=== PATIENT | female | born 1995 | race Caucasian/White ===

== ENCOUNTER 2017-07-04 13:43 | Emergency (ER) | payer OTHER ==
[2017-07-04 14:25] VITALS: BP 108/58; PULSE 92; RESP 18; TEMP 99; O2SAT 100
--- NOTE | 2017-07-04 16:29 | ED PDOC ---
HPI: Back Time Seen by Provider: 07/04/17 14:58 Chief Complaint (Nursing): Back Pain Chief Complaint (Provider): Back pain History Per: Patient History/Exam Limitations: no limitations Onset/Duration Of Symptoms: Days (x1 week) Current Symptoms Are (Timing): Still Present Quality Of Discomfort: "Pain" Associated Symptoms: None Exacerbating Factor(s): Movement Additional Complaint(s): Javier Coppola is a 22 year old female, with no significant past medical history , who presents to the emergency department complaining of lower back pain onset for x1 week. Patient reports she fell x2 months ago, and states the pain is worst with movement. She had pain initially but went away. Patient has been taking over the counter medication but with no improvement. She denies any paresthesias, weakness, fever, acute bowel or bladder dysfunction. No further medical complaints. PMD: None provided. Past Medical History Reviewed: Historical Data, Nursing Documentation, Vital Signs Vital Signs: Last Vital Signs Temp 99 F 07/04/17 14:21 Pulse 92 H 07/04/17 14:21 Resp 18 07/04/17 14:21 BP 108/58 L 07/04/17 14:21 Pulse Ox 100 07/04/17 14:21 - Medical History PMH: No Chronic Diseases - Surgical History Surgical History: Appendectomy - Family History Family History: States: Unknown Family Hx - Social History Current smoker - smoking cessation education provided: No Alcohol: None Drugs: Denies - Immunization History Hx Tetanus Toxoid Vaccination: No Hx Influenza Vaccination: No Hx Pneumococcal Vaccination: No - Home Medications Home Medications: Ambulatory Orders Medication Instructions Recorded Cyclobenzaprine [Cyclobenzaprine 10 mg PO TID PRN #15 tab 07/04/17 HCl] Meloxicam [Mobic] 15 mg PO DAILY #20 tab 07/04/17 - Allergies Allergies/Adverse Reactions: Allergies Allergy/AdvReac Type Severity Reaction Status Date / Time No Known Allergies Allergy Verified 07/04/17 14:21 Review of Systems ROS Statement: Except As Marked, All Systems Reviewed And Found Negative Constitutional: Negative for: Fever Gastrointestinal: Negative for: Constipation Genitourinary Female: Negative for: Frequency, Incontinence Musculoskeletal: Positive for: Back Pain (lower) Neurological: Negative for: Weakness, Numbness Physical Exam - Reviewed Nursing Documentation Reviewed: Yes Vital Signs Reviewed: Yes - Physical Exam Comments: GENERAL APPEARANCE: Patient is awake, alert, oriented x 3, in no acute distress. SKIN: Warm, dry; (-) cyanosis. EYES: (-) conjunctival pallor. ENMT: Mucous membranes moist. NECK: (-) tenderness, (-) stiffness, (-) lymphadenopathy. CHEST AND RESPIRATORY: (-) rales, (-) rhonchi, (-) wheezes; breath sounds equal bilaterally. HEART AND CARDIOVASCULAR: (-) irregularity; (-) murmur, (-) gallop. ABDOMEN AND GI: Soft; (-) tenderness; (-) palpable mass. BACK: Diffusely tender paralumbar area, (+) mild spasm, (+) midline tenderness w / direct bony tenderness to L3-L4, (-) deformity. Straight leg raising (-) bilaterally. EXTREMITIES: (-) deformity. Distal pulses good bilaterally. NEURO AND PSYCH: Mental status as above. Intact sensation bilaterally; normal strength in extension of the knees, plantar and dorsiflexion of the toes. DTRs symmetric. - ECG O2 Sat by Pulse Oximetry: 100 (RA) Pulse Ox Interpretation: Normal Medical Decision Making Medical Decision Making: Initial Impression: Back pain Initial plan: --Flexeril 10 mg PO --Toradol 60 mg IM --POC Urine --LS Spine with OBL > 18 yrs old [RAD] --reevaluation Uhcg : (-) XR L spine : IMPRESSION: No acute fractures. Straightening of the normal lumbar lordosis. Mild degenerative spondylosis L4-L5 level. X-ray results discussed with the patient in great detail. Based on history, exam and diagnostic results plan will be for outpatient follow-up. Advised to follow up with primary care physician or the clinic in 1-2 days without fail. Advised to take medication as prescribed. Return to the emergency room at any time for any new or worsening symptoms. Patient states she fully agrees with and understands discharge instructions. States that she agrees with the plan and disposition. Verbalized and repeated discharge instructions and plan. I have given the patient opportunity to ask any additional questions. ~ Scribe Attestation: Documented by Woody Estrada, acting as a scribe for Romina Contreras PA-C. Provider Scribe Attestation: All medical record entries made by the Scribe were at my direction and personally dictated by me. I have reviewed the chart and agree that the record accurately reflects my personal performance of the history, physical exam, medical decision making, and the department course for this patient. I have also personally directed, reviewed, and agree with the discharge instructions and disposition. Disposition - Clinical Impression Clinical Impression: Low back pain - Patient ED Disposition Is Patient to be Admitted: No Counseled Patient/Family Regarding: Studies Performed, Diagnosis, Need For Followup, Rx Given - Disposition Referrals: [facility] [Outside] Disposition: Routine/Home Disposition Time: 17:00 Condition: STABLE Additional Instructions: Thank you for letting us take care of you today. You were treated for low back pain. The emergency medical care you received today was directed at your acute symptoms. If you were prescribed any medication, please fill it and take as directed. It may take several days for your symptoms to resolve. Return to the Emergency Department if your symptoms worsen, do not improve, or if you have any other problems. Please call one of the physicians/clinics you have been referred to that are listed on the Patient Visit Information form that is included in your discharge packet. Bring any paperwork you were given at discharge with you along with any medications you are taking to your follow up visit. Our treatment cannot replace ongoing medical care by a primary care provider (PCP) outside of the emergency department. Thank you for allowing the [facility] team to be part of your care today. If you had an X-Ray : A Radiologist will review the ED reading if any change in treatment is needed we will contact you. Prescriptions: Cyclobenzaprine [Cyclobenzaprine HCl] 10 mg PO TID PRN #15 tab PRN Reason: Muscle Spasm Meloxicam [Mobic] 15 mg PO DAILY #20 tab Instructions: Acute Low Back Pain (ED) Forms: [employer] (Stateless), [facility] ED School/Work Excuse
--- NOTE | 2017-07-04 16:47 | RAD ---
PROCEDURE: Radiographs of the Lumbar Spine. HISTORY: Pain COMPARISON: No prior. FINDINGS: BONES: No acute compression fractures no retropulsed fragments. Vertebral bodies exhibit normal stature. There is straightening of the normal lumbar lordosis. Vertebral bodies otherwise normally aligned. DISC SPACES: . Mild disc space narrowing L4-L5 level. OTHER FINDINGS: None. IMPRESSION: No acute fractures. Straightening of the normal lumbar lordosis. Mild degenerative spondylosis L4-L5 level.
== END 2017-07-04 17:44 | disposition home or self-care (01) ==
LOC: H.ER 13:43
DX: M54.5 Low back pain (principal)
CPT/HCPCS: 72110; 81025; 96372; 99282; J1885

== ENCOUNTER 2017-10-04 01:15 | Emergency (ER) | payer SELFPAY ==
[2017-10-04 02:01] VITALS: BP 125/83; PULSE 74; RESP 18; TEMP 97.7; O2SAT 100
--- NOTE | 2017-10-04 02:55 | ED PDOC ---
HPI: Abdomen Time Seen by Provider: 10/04/17 02:24 Chief Complaint (Nursing): Abdominal Pain Chief Complaint (Provider): abdominal pain History Per: Patient History/Exam Limitations: no limitations Onset/Duration Of Symptoms: Hrs (2) Current Symptoms Are (Timing): Still Present Location Of Pain/Discomfort: Suprapubic Additional Complaint(s): 22 y/o female presents with lower abdominal pain x 2 hours. Patient states she got her menstrual period today, but reports no relief with a menstrual-relief tablet taken at onset of symptoms. Patient states she gets cramps but that it has never been to this extent. Denies fever, nausea/vomiting, chest pain, shortness of breath, palpitations, changes in bowel movements, urinary symptoms. Past Medical History Reviewed: Historical Data, Nursing Documentation, Vital Signs Vital Signs: Last Vital Signs Temp 97.7 F 10/04/17 01:58 Pulse 74 10/04/17 01:58 Resp 18 10/04/17 01:58 BP 125/83 10/04/17 01:58 Pulse Ox 100 10/04/17 04:24 - Medical History PMH: No Chronic Diseases - Surgical History Surgical History: Appendectomy - Family History Family History: States: Unknown Family Hx - Immunization History Hx Tetanus Toxoid Vaccination: No Hx Influenza Vaccination: No Hx Pneumococcal Vaccination: No - Home Medications Home Medications: Ambulatory Orders Medication Instructions Recorded Cyclobenzaprine [Cyclobenzaprine 10 mg PO TID PRN #15 tab 07/04/17 HCl] Meloxicam [Mobic] 15 mg PO DAILY #20 tab 07/04/17 - Allergies Allergies/Adverse Reactions: Allergies Allergy/AdvReac Type Severity Reaction Status Date / Time No Known Allergies Allergy Verified 10/04/17 01:58 Review of Systems ROS Statement: Except As Marked, All Systems Reviewed And Found Negative Genitourinary Female: Positive for: Pelvic Pain Physical Exam - Reviewed Nursing Documentation Reviewed: Yes Vital Signs Reviewed: Yes - Physical Exam Appears: Positive for: Well, Non-toxic, Uncomfortable Head Exam: Positive for: ATRAUMATIC, NORMAL INSPECTION, NORMOCEPHALIC Skin: Positive for: Normal Color Eye Exam: Positive for: Normal appearance ENT: Positive for: Normal ENT Inspection Cardiovascular/Chest: Positive for: Regular Rate, Rhythm Respiratory: Positive for: Normal Breath Sounds Gastrointestinal/Abdominal: Positive for: Bowel Sounds, Soft, Tenderness ( suprapubic, periumbilical) Back: Positive for: Normal Inspection Extremity: Positive for: Normal ROM Neurologic/Psych: Positive for: Alert, Oriented - Laboratory Results Result Diagrams: 10/04/17 03:54 10/04/17 03:54 Urine POC: Negative Urine dip results: Positive for: Blood. Negative for: Leukocyte Esterase, Nitrate, Ketones, Glucose - ECG O2 Sat by Pulse Oximetry: 100 - Progress ED Course And Treament: labs, urine, u/s EXAM: US Pelvis Complete, Transabdominal CLINICAL HISTORY: 22 years old, female; Pain; Pelvic pain TECHNIQUE: Real-time transabdominal pelvic ultrasound (complete) with image documentation. COMPARISON: No relevant prior studies available. FINDINGS: Uterus/cervix: Unremarkable. Normal endometrial stripe thickness. No myometrial mass. Right ovary: Unremarkable. No mass. Normal blood flow. Left ovary: Unremarkable. No mass. Normal blood flow. Free fluid: No free fluid. IMPRESSION: Normal pelvic ultrasound. WBC 16; will order CT abd/pelvis Disposition - Clinical Impression Clinical Impression: Abdominal pain - Patient ED Disposition Is Patient to be Admitted: No - Disposition Disposition Time: 06:00 Condition: FAIR Forms: [employer] (Malay) Patient Signed Over To: Marianela Reaves Handoff Comments: pending CT
[2017-10-04 04:01] LABS: BASO # 0.1 K/uL (0.0-0.2); BASO % 0.4 % (0.0-2.0); EOS # 0.5 K/uL (0.0-0.7); HEMOGLOBIN 12.7 g/dL (12.0-16.0); LYMPH # 1.1 K/uL (1.0-4.3); LYMPH % 6.8 % (20.0-40.0); MEAN CELL VOLUME 86.1 fl (81.0-99.0); MEAN CORPUSCULAR HEMOGLOBIN 29.7 pg (27.0-31.0); MEAN CORPUSCULAR HGB CONC 34.5 g/dL (33.0-37.0); MEAN PLATELET VOLUME 7.9 fl (7.2-11.7); MONO # 0.5 K/uL (0.0-0.8); MONO % 3.4 % (0.0-10.0); NEUT # 13.9 K/uL (1.8-7.0); NEUT % 86.4 % (50.0-75.0); PLATELET COUNT 284 K/uL (130-400); RBC 4.28 Mil/uL (3.80-5.20); RED CELL DISTRIBUTION WIDTH 13.4 % (11.5-14.5); WHITE BLOOD COUNT 16.1 K/uL (4.8-10.8)
[2017-10-04] MEDS ORDERED: Iohexol 240 (50 ml) PO ONE (04:09)
[2017-10-04 04:11] LABS: ALB/GLOB RATIO 1.3 (1.0-2.1); ALBUMIN 3.9 g/dL (3.5-5.0); ALT/SGPT 24 U/L (9-52); AST/SGOT 21 U/L (14-36); BLOOD UREA NITROGEN 9 mg/dl (7-17); GFR AFRICAN-AMERICAN > 60; GFR NON-AFRICAN AMERICAN > 60
[2017-10-04] MEDS ORDERED: Iohexol 240 (50 ml) ONE (04:17)
[2017-10-04 05:38] LABS: EOSINOPHIL 2 % (0-7); LYMPHOCYTE 12 % (20-50); MONOCYTE 4 % (0-10); NEUTROPHIL 81 % (42-75); REACTIVE LYMPHOCYTES 1 % (0-0); TOTAL CELLS COUNTED 100
[2017-10-04 05:39] LABS: ANISOCYTOSIS SLIGHT; BURR CELLS SLIGHT; LARGE PLATELETS PRESENT; PLATELET ESTIMATE NORMAL (NORMAL)
--- NOTE | 2017-10-04 05:45 | ED PDOC ---
- Laboratory Results Result Diagrams: 10/04/17 03:54 10/04/17 03:54 Urine POC: Negative - ECG O2 Sat by Pulse Oximetry: 100 (RA) Pulse Ox Interpretation: Normal Medical Decision Making Medical Decision Makin Patient is transferred from [facility] to myself pending CAT scan. 06:49 Abdomen/Pelvis CT FINDINGS: Lung bases: No acute findings. ABDOMEN: Liver: Fatty infiltration. Gallbladder and bile ducts: No calcified stones. No ductal dilation. Pancreas: No ductal dilation. No mass. Spleen: No splenomegaly. Adrenals: No mass. Kidneys and ureters: No mass. No hydronephrosis. Stomach and bowel: No definite mural thickening. No obstruction. PELVIS: Appendix: Appendectomy. Bladder: Unremarkable. Reproductive: Unremarkable as visualized. ABDOMEN and PELVIS: Intraperitoneal space: No significant fluid collection. No free air. Bones/joints: No acute fracture. Soft tissues: Unremarkable. Vasculature: Unremarkable. No aneurysm. Lymph nodes: No pathologically enlarged lymph nodes. IMPRESSION: 1. No definite acute intraabdominal abnormality. 2. Incidental/non-acute findings are described above. 0655 -CT scan negative, patient diagnosed with menstrual cramps. 07:00 -Upon provider evaluation patient is medically stable, and requires no further treatment in the ED at this time. Patient will be discharged home, diagnosis menstrual cramps. Counseling was provided and all questions were answered regarding diagnosis and need for follow up with PMD. There is agreement to discharge plan. Return if symptoms persist or worsen. Disposition Counseled Patient/Family Regarding: Studies Performed, Diagnosis, Need For Followup - Clinical Impression Clinical Impression: Abdominal pain, Menstrual cramp - POA Present On Arrival: None - Disposition Referrals: [facility] [Outside] [facility] [Outside] [facility] [Outside] Disposition: Routine/Home Disposition Time: 07:00 Condition: IMPROVED Additional Instructions: follow up with your primary doctor in 1-2 days return to the ED with any worsening or concerning symptoms Instructions: Acute Abdomen (Belly Pain), Painful Periods Forms: [employer] (Cambodian)
[2017-10-04] MEDS ORDERED: Iohexol 300 100 ML IJ ONE (06:10)
[2017-10-04] MEDS ORDERED: Sodium Chloride 0.9% 100 ML ONE (06:10)
--- NOTE | 2017-10-04 06:49 | CT ---
EXAM: CT Abdomen and Pelvis With Intravenous Contrast CLINICAL HISTORY: 22 years old, female; Pain; Abdominal pain; Localized; Lower; Prior surgery; Surgery date: 6+ months; Surgery type: Appendectomy; Additional info: Lower abd pain TECHNIQUE: Axial computed tomography images of the abdomen and pelvis with intravenous contrast. All CT scans at this facility use one or more dose reduction techniques, viz.: automated exposure control; ma/kV adjustment per patient size (including targeted exams where dose is matched to indication; i.e. head); or iterative reconstruction technique. Coronal and sagittal reformatted images were created and reviewed. CONTRAST: 90 mL of [id number] administered intravenously. COMPARISON: US - PELVIS ULTRASOUND 2017-10-04 03:04 FINDINGS: Lung bases: No acute findings. ABDOMEN: Liver: Fatty infiltration. Gallbladder and bile ducts: No calcified stones. No ductal dilation. Pancreas: No ductal dilation. No mass. Spleen: No splenomegaly. Adrenals: No mass. Kidneys and ureters: No mass. No hydronephrosis. Stomach and bowel: No definite mural thickening. No obstruction. PELVIS: Appendix: Appendectomy. Bladder: Unremarkable. Reproductive: Unremarkable as visualized. ABDOMEN and PELVIS: Intraperitoneal space: No significant fluid collection. No free air. Bones/joints: No acute fracture. Soft tissues: Unremarkable. Vasculature: Unremarkable. No aneurysm. Lymph nodes: No pathologically enlarged lymph nodes. IMPRESSION: 1. No definite acute intraabdominal abnormality. 2. Incidental/non-acute findings are described above.
--- NOTE | 2017-10-04 12:06 | US ---
HISTORY: Pelvic pain. Menstrual status: LMP 10/02/2017. Regular cycles COMPARISON: None available. TECHNIQUE: Transabdominal only. Real-time technique with 2D, duplex and color Doppler FINDINGS: UTERUS: Measures 3.9 x 5.2 x 7.7 cm. Normal in size and appearance. No fibroid or other mass lesion seen. ENDOMETRIUM: Measures 7.4 mm in diameter. Unremarkable. CERVIX: No cervical abnormality identified. RIGHT OVARY: Measures 1.5 x 2.8 cm. No solid mass. Normal flow. LEFT OVARY: Measures 2.4 x 2.3 cm. No solid mass. Normal flow. FREE FLUID: No significant free fluid noted. OTHER FINDINGS: None. IMPRESSION: Unremarkable pelvic ultrasound. Concordant results (preliminary interpretation) provided by [facility]. Procedure Completed: 03:17 Preliminary ([facility]) Report: Dictated and Authenticated: 04:21 Final Interpretation: 12:04 October 04, 2017.
== END 2017-10-04 07:04 | disposition home or self-care (01) ==
LOC: H.ER 01:15
DX: N94.6 Dysmenorrhea, unspecified (principal)
CPT/HCPCS: 74177; 76856; 80053; 81025; 83690; 85025; 99283; J1885; Q9966; Q9967

== ENCOUNTER 2018-03-23 08:52 | Emergency (ER) | payer SELFPAY ==
[2018-03-23 08:57] VITALS: BP 100/54; PULSE 79; RESP 18; TEMP 98.1; O2SAT 100
[2018-03-23 08:58] VITALS: BMI 22.4
--- NOTE | 2018-03-23 10:32 | ED PDOC ---
HPI: Female Pain Time Seen by Provider: 03/23/18 09:10 Chief Complaint (Nursing): Female Genitourinary Chief Complaint (Provider): Female Genitourinary History Per: Patient History/Exam Limitations: no limitations Onset/Duration Of Symptoms: Days (x 1) Current Symptoms Are (Timing): Still Present Quality Of Discomfort: "Pain" Associated Symptoms: Urinary Symptoms Additional Complaint(s): 22 year old female with a history of appendicitis presents to the ED with left sided pelvic pain, difficulty urinating and dysuria for one day. Patient denies fever, vomiting and diarrhea. PMD: none provided Past Medical History Reviewed: Historical Data, Nursing Documentation, Vital Signs Vital Signs: Last Vital Signs Temp 98.1 F 03/23/18 08:57 Pulse 79 03/23/18 08:57 Resp 18 03/23/18 08:57 BP 100/54 L 03/23/18 08:57 Pulse Ox 100 03/23/18 08:57 - Medical History PMH: No Chronic Diseases, Gall Bladder Disease (gallstones) - Surgical History Surgical History: Appendectomy - Family History Family History: States: Unknown Family Hx - Immunization History Hx Tetanus Toxoid Vaccination: No Hx Influenza Vaccination: No Hx Pneumococcal Vaccination: No - Home Medications Home Medications: Ambulatory Orders Medication Instructions Recorded Cyclobenzaprine [Cyclobenzaprine 10 mg PO TID PRN #15 tab 07/04/17 HCl] Meloxicam [Mobic] 15 mg PO DAILY #20 tab 07/04/17 - Allergies Allergies/Adverse Reactions: Allergies Allergy/AdvReac Type Severity Reaction Status Date / Time No Known Allergies Allergy Verified 03/23/18 09:00 Review of Systems ROS Statement: Except As Marked, All Systems Reviewed And Found Negative Constitutional: Negative for: Fever Gastrointestinal: Negative for: Vomiting, Diarrhea Genitourinary Female: Positive for: Dysuria, Pelvic Pain (left sided ), Other (difficulty urinating) Physical Exam - Reviewed Nursing Documentation Reviewed: Yes Vital Signs Reviewed: Yes - Physical Exam Appears: Positive for: Non-toxic, No Acute Distress Head Exam: Positive for: ATRAUMATIC, NORMAL INSPECTION, NORMOCEPHALIC Skin: Positive for: Normal Color, Warm, Dry Eye Exam: Positive for: EOMI, Normal appearance, PERRL Neck: Positive for: Normal, Painless ROM, Supple Cardiovascular/Chest: Positive for: Regular Rate, Rhythm. Negative for: Murmur Respiratory: Positive for: Normal Breath Sounds. Negative for: Respiratory Distress Gastrointestinal/Abdominal: Positive for: Soft, Tenderness (mild left adnexal tenderness; not a full pelvic exam) Extremity: Positive for: Normal ROM (x 4). Negative for: Deformity Neurologic/Psych: Positive for: Alert, Oriented. Negative for: Motor/Sensory Deficits - ECG O2 Sat by Pulse Oximetry: 100 (RA) Pulse Ox Interpretation: Normal Medical Decision Making Medical Decision Makin:26 Impression: left sided pelvic pain and headache Initial Plan: --urine preg --Urine cx --UA --Motrin 600 mg PO 15:00 --patient signed out to Dr. Vivar pending US results and reevaluation. Scribe Attestation: Documented by Carlyn Diaz acting as a scribe for Marianela Reaves MD Provider Scribe Attestation: All medical record entries made by the Scribe were at my direction and personally dictated by me. I have reviewed the chart and agree that the record accurately reflects my personal performance of the history, physical exam, medical decision making, and the department course for this patient. I have also personally directed, reviewed, and agree with the discharge instructions and disposition. Disposition - Clinical Impression Clinical Impression: Urinary tract infection - Patient ED Disposition Is Patient to be Admitted: Transfer of Care - Disposition Disposition: Transfer of Care Disposition Time: 15:00 Forms: [employer] (Faroese) Patient Signed Over To: Nathalia Vivar
[2018-03-23 11:13] LABS: SQUAMOUS EPITHIAL 2 /hpf (0-5); URINE BILIRUBIN NEGATIVE (NEGATIVE); URINE BLOOD NEGATIVE (NEGATIVE); URINE CLARITY SLIGHTY-CLOUDY (Clear); URINE COLOR STRAW (YELLOW); URINE GLUCOSE (UA) NEG (Normal); URINE LEUKOCYTE ESTERASE SMALL Leu/uL (Negative); URINE PROTEIN NEGATIVE (NEGATIVE); URINE UROBILINOGEN 0.2-1.0 mg/dL (0.2-1.0)
--- NOTE | 2018-03-23 15:12 | ED PDOC ---
- ECG O2 Sat by Pulse Oximetry: 100 (RA) Pulse Ox Interpretation: Normal Medical Decision Making Medical Decision Makin:00 --Patient signed out to me by Dr. Reaves pending ED workup, reevaluation and final disposition. 15:25 Transvag US FINDINGS: UTERUS: Measures 3.5 x 4.1 x 7.7 cm. Normal in size and appearance. No fibroid or other mass lesion seen. ENDOMETRIUM: Measures 9.5 mm in diameter. No ultrasound findings to suggest gestational sac, fluid, debris, mass or polyp or other pathologic process within the endometrium. CERVIX: No cervical abnormality identified. RIGHT OVARY: Measures 2.2 x 3.2 x 3.7 cm. Complex cyst/mass 1.4 x 1 8 x 2 5 cm. Likely hemorrhagic/debris laden cyst. Normal flow. LEFT OVARY: Measures 3.1 x 1.4 x 2.6 cm. No solid mass. Normal flow. Multiple subcentimeter follicles. FREE FLUID: No significant free fluid noted. OTHER FINDINGS: None. IMPRESSION: Complex cyst right adnexa a new finding compared to the prior study. Otherwise unremarkable examination. 15:37 Discussed both findings and plan of care at length with patient. Scribe Attestation: Documented by Carlyn Diaz acting as a scribe for Nathalia Vivar MD Provider Scribe Attestation: All medical record entries made by the Scribe were at my direction and personally dictated by me. I have reviewed the chart and agree that the record accurately reflects my personal performance of the history, physical exam, medical decision making, and the department course for this patient. I have also personally directed, reviewed, and agree with the discharge instructions and disposition. Disposition - Clinical Impression Clinical Impression: Urinary tract infection - Disposition Forms: [employer] (Hebrew)
--- NOTE | 2018-03-23 15:29 | US ---
Date of service: 03/23/2018 HISTORY: Abdominal and pelvic pain. LMP 03/08/2018. COMPARISON: 10/04/2017. Pelvic ultrasound TECHNIQUE: Transabdominal, transvaginal. Real -time technique with 2D, duplex and color Doppler. FINDINGS: UTERUS: Measures 3.5 x 4.1 x 7.7 cm. Normal in size and appearance. No fibroid or other mass lesion seen. ENDOMETRIUM: Measures 9.5 mm in diameter. No ultrasound findings to suggest gestational sac, fluid, debris, mass or polyp or other pathologic process within the endometrium. CERVIX: No cervical abnormality identified. RIGHT OVARY: Measures 2.2 x 3.2 x 3.7 cm. Complex cyst/mass 1.4 x 1 8 x 2 5 cm. Likely hemorrhagic/debris laden cyst. Normal flow. LEFT OVARY: Measures 3.1 x 1.4 x 2.6 cm. No solid mass. Normal flow. Multiple subcentimeter follicles. FREE FLUID: No significant free fluid noted. OTHER FINDINGS: None. IMPRESSION: Complex cyst right adnexa a new finding compared to the prior study. Otherwise unremarkable examination.
== END 2018-03-23 15:58 | disposition home or self-care (01) ==
LOC: H.ER 08:52
DX: N39.0 Urinary tract infection, site not specified (principal); N83.291 Other ovarian cyst, right side